=== PATIENT | male | born 1960 | race Caucasian/White ===

== ENCOUNTER 2017-12-30 08:05 | Emergency (ER) | payer OTHER ==
[2017-12-30] MEDS: CEPHALEXIN 500 MG CAP PO (09:08)
[2017-12-30] MEDS: KETOROLAC 30 MG INJ IM (09:09)
[2017-12-30] MEDS: OXYCODONE/ACETAMINOPHEN (5/325) TAB PO (09:09)
[2017-12-30 09:36] LABS: ADD UMIC YES; UR ASCORBIC ACID NEGATIVE (NEGATIVE); UR BACTERIA FEW /HPF (NONE SEEN); UR BILIRUBIN (Dip) NEGATIVE (NEGATIVE); UR BLOOD (Dip) 2+ mg/dL (NEGATIVE); UR CLARITY CLEAR (CLEAR); UR COLOR YELLOW (YELLOW); UR GLUCOSE (Dip) NEGATIVE (NEGATIVE); UR KETONES (Dip) NEGATIVE (NEGATIVE); UR LEUKOCYTE ESTERASE (Dip) NEGATIVE Leu/ul (NEGATIVE); UR NITRITE (Dip) NEGATIVE (NEGATIVE); UR RBC 7 /HPF (0-5); UR SPECIFIC GRAVITY (Dip) 1.019 (1.003-1.030); UR TOTAL PROTEIN (Dip) NEGATIVE (NEGATIVE); UR UROBILINOGEN (Dip) NEGATIVE (NEGATIVE); UR WBC 2 /HPF (0-5)
== END 2017-12-30 10:47 | disposition home or self-care (01) ==
LOC: E/R 08:05
DX: N20.0 Calculus of kidney (principal)
CPT/HCPCS: 81001; 87086; 96372; 99284-25